=== PATIENT | male | born 1945 | race Caucasian/White ===

== ENCOUNTER 2021-11-22 18:03 | Inpatient (IN) | payer MEDICARE, MEDICAID ==
[~2021-11-22] VITALS: Ht 147.3 cm; Wt 75.7 kg
[2021-11-22] MEDS ORDERED: MethylPREDNISolone SOD SUCC 125 MG/2 ML VIAL IVP ONE (18:15)
[2021-11-22] MEDS ORDERED: LEVALBUTEROL HCL 1.25 MG/0.5 ML NEB SOLUTION NEB ONE (18:15)
[2021-11-22] MEDS ORDERED: SODIUM CHLORIDE 0.9% 1,000 ML IV ONE (18:30)
[2021-11-22] MEDS ORDERED: DILTIAZEM HCL 5 MG/ML 5 ML VIAL IVP ONE ×2 (18:30→22:45)
[2021-11-22] MEDS ORDERED: FUROSEMIDE 20 MG/2 ML VIAL IVP ONE (18:45)
[2021-11-22 18:50] LABS: COVID AG,FIA SOURCE NASOPHARYNGEAL
[2021-11-22 18:51] LABS: BASOPHILS % (AUTO) 0.4 % (0.0-2.0); EOSINOPHILS % (AUTO) 4.2 % (1.0-6.0); HEMATOCRIT 35.1 % (41-53); HEMOGLOBIN 10.9 g/dL (13.5-17.5); LYMPHOCYTES # (AUTO) 1.2 K/uL (1.0-4.8); LYMPHOCYTES % (AUTO) 15.8 % (22.0-44.0); MEAN CORPUSCULAR HEMOGLOBIN 25.8 pg (26.0-34.0); MEAN CORPUSCULAR HGB CONC 31.1 G/dL (31.0-37.0); MEAN CORPUSCULAR VOLUME 83 fL (80-100); MONOCYTES # (AUTO) 0.6 K/uL (0.1-1.0); MONOCYTES % (AUTO) 7.7 % (2.0-9.0); NEUTROPHILS # (AUTO) 5.5 K/uL (1.8-7.7); NEUTROPHILS % (AUTO) 71.9 % (40.0-70.0); PLATELET COUNT (AUTO) 149 K/uL (150-450); RED BLOOD CELL COUNT(AUTO) 4.23 MIL/uL (4.50-5.90); RED CELL DISTRIBUTION WIDTH 17.1 % (11.5-14.5)
[2021-11-22 18:57] LABS: CALCIUM, TOTAL 8.6 mg/dL (8.8-10.5); CREATININE 1.28 mg/dL (0.60-1.30)
[2021-11-22 19:01] LABS: INR 1.2 (0.9-1.1)
[2021-11-22 19:02] LABS: ALBUMIN 3.5 g/dL (3.4-5.0); BILIRUBIN,TOTAL 0.7 mg/dL (0.1-1.0); MAGNESIUM 1.6 mg/dL (1.80-2.40); PHOSPHORUS 3.7 mg/dL (2.5-4.9); TOTAL PROTEIN, SERUM 7.3 g/dL (6.4-8.2)
[2021-11-22 19:14] LABS: INFLUENZA TYPE A NEGATIVE FOR TYPE A (NEGATIVE); INFLUENZA TYPE B NEGATIVE FOR TYPE B (NEGATIVE)
[2021-11-22] MEDS ORDERED: ASPIRIN 325 MG TABLET PO ONE (19:15)
[2021-11-22] MEDS ORDERED: MAGNESIUM SULFATE 1 GM in DEXTROSE 5%-WATER 50 ML IV ONE (19:30)
[2021-11-22 19:44] LABS: THYROID STIMULATING HORMONE 3.03 uIU/mL (0.36-3.74)
[2021-11-22 20:28] LABS: AMPHET/METH SCREEN,URINE NEGATIVE (NEGATIVE); BARBITURATE SCREEN, URINE NEGATIVE (NEGATIVE); BENZODIAZEPINES SCREEN,URINE NEGATIVE (NEGATIVE); CANNABINOID SCREEN,URINE NEGATIVE (NEGATIVE); COCAINE SCREEN,URINE NEGATIVE (NEGATIVE); METHADONE SCREEN, URINE NEGATIVE (NEGATIVE); OPIATE SCREEN,URINE NEGATIVE (NEGATIVE)
[2021-11-22 20:30] LABS: PHENCYCLIDINE SCREEN,URINE NEGATIVE (NEGATIVE)
[2021-11-22] MEDS ORDERED: ONDANSETRON HCL 4 MG/2 ML VIAL IVP PRN (21:00)
[2021-11-22] MEDS ORDERED: HEPARIN SODIUM 25000 UNITS/D5W 250 ML IV PRN (21:15)
[2021-11-22] MEDS ORDERED: MAGNESIUM SULFATE 2 GM/WATER 50 ML IV ONE (21:15)
[2021-11-22] MEDS ORDERED: HEPARIN SODIUM,PORCINE 5,000 UNITS/ML VIAL IVP PRN ×2 (21:15)
[2021-11-22] MEDS ORDERED: HEPARIN SODIUM,PORCINE 5,000 UNITS/ML VIAL IVP ONE (21:15)
[2021-11-22 21:44] LABS: INR 1.2 (0.9-1.1)
[2021-11-22 21:56] LABS: APPEARANCE,URINE CLEAR (CLEAR); BILIRUBIN,URINE NEGATIVE (NEGATIVE); GLUCOSE, URINE (UA) NEGATIVE (NEGATIVE); KETONES,URINE NEGATIVE (NEGATIVE); LEUKOCYTE ESTERASE ,URINE NEGATIVE (NEGATIVE); NITRATE,URINE NEGATIVE (NEGATIVE); OCCULT BLOOD,URINE TRACE (NEGATIVE); PH,URINE 5.5 (5.0-8.0); PROTEIN,URINE NEGATIVE (NEGATIVE); SPECIFIC GRAVITIY, URINE 1.006 (1.003-1.030); UROBILINOGEN,URINE <=1.0 mg/dL (<=1.0)
[2021-11-22 22:15] LABS: BACTERIA,URINE None Seen /HPF (None Seen); RBC,URINE None Seen /HPF (0-2); WBC,URINE None Seen /HPF (0-5)
[2021-11-23] MEDS ORDERED: SODIUM CHLORIDE 0.9% 100 ML ONE (01:33)
[2021-11-23] MEDS ORDERED: IOHEXOL 350 MG/ML 75 ML VIAL ONE (01:34)
[2021-11-23 04:21] LABS: BASOPHILS % (AUTO) 0.3 % (0.0-2.0); EOSINOPHILS % (AUTO) 0.1 % (1.0-6.0); HEMATOCRIT 35.5 % (41-53); HEMOGLOBIN 11.2 g/dL (13.5-17.5); LYMPHOCYTES # (AUTO) 0.3 K/uL (1.0-4.8); LYMPHOCYTES % (AUTO) 5.5 % (22.0-44.0); MEAN CORPUSCULAR HGB CONC 31.5 G/dL (31.0-37.0); MEAN CORPUSCULAR VOLUME 82 fL (80-100); MONOCYTES # (AUTO) 0.1 K/uL (0.1-1.0); MONOCYTES % (AUTO) 1.4 % (2.0-9.0); NEUTROPHILS # (AUTO) 4.7 K/uL (1.8-7.7); PLATELET COUNT (AUTO) 137 K/uL (150-450)
[2021-11-23 04:23] LABS: NEUTROPHILS % (AUTO) 92.7 % (40.0-70.0)
[2021-11-23] MEDS ORDERED: IPRATROPIUM BROMIDE 0.5 MG/2.5 ML NEB SOLUTION NEB PRN (07:45)
[2021-11-23] MEDS ORDERED: ALBUTEROL SULFATE 2.5 MG/0.5 ML NEB SOLUTION NEB PRN (07:45)
[2021-11-23] MEDS ORDERED: LORazepam 2 MG TABLET PO PRN (07:45)
[2021-11-23 08:17] VITALS: BP 131/89
[2021-11-23] MEDS ORDERED: DILTIAZEM HCL CD 120 MG ER CAPSULE PO SCH (09:00)
[2021-11-23 11:09] VITALS: BP 100/72
[2021-11-23] MEDS: FUROSEMIDE 20 MG/2 ML VIAL IVP SCH ×2 (11:40→19:57)
[2021-11-23] MEDS: ATORVASTATIN CALCIUM 40 MG TABLET PO SCH (11:41)
[2021-11-23] MEDS: ASPIRIN 81 MG CHEWABLE TABLET PO SCH (11:41)
[2021-11-23] MEDS: MULTIVITAMINS, THERAPEUTIC 15 ML UDCUP PO SCH (11:41)
[2021-11-23] MEDS ORDERED: HEPARIN SODIUM,PORCINE 5,000 UNITS/ML VIAL IVP PRN ×2 (12:45)
[2021-11-23 16:16] VITALS: BP 116/80
[2021-11-23] MEDS: HEPARIN SODIUM 25000 UNITS/D5W 250 ML IV PRN (20:01)
[2021-11-23 20:21] VITALS: BP 101/63
[2021-11-23] MEDS: MORPHINE SULFATE 2 MG/ML SYRINGE IVP PRN (21:47)
[2021-11-23 23:51] VITALS: BP 105/60
[2021-11-24 05:06] VITALS: BP 108/88
[2021-11-24] MEDS ORDERED: LORazepam 2 MG TABLET PO PRN (07:00)
[2021-11-24 07:21] VITALS: BP 100/58
[2021-11-24] MEDS: FUROSEMIDE 20 MG/2 ML VIAL IVP SCH ×2 (08:17→20:58)
[2021-11-24] MEDS: ATORVASTATIN CALCIUM 40 MG TABLET PO SCH (08:17)
[2021-11-24] MEDS: MULTIVITAMINS, THERAPEUTIC 15 ML UDCUP PO SCH (08:18)
[2021-11-24] MEDS: ASPIRIN 81 MG CHEWABLE TABLET PO SCH (08:19)
[2021-11-24] MEDS: MORPHINE SULFATE 2 MG/ML SYRINGE IVP PRN ×2 (08:23→20:57)
[2021-11-24] MEDS ORDERED: METOPROLOL SUCCINATE 25 MG ER TABLET PO SCH (09:00)
[2021-11-24] MEDS ORDERED: LORazepam 2 MG TABLET PO SCH (09:00)
[2021-11-24] MEDS ORDERED: DILTIAZEM HCL 60 MG SR CAPSULE PO SCH (09:00)
[2021-11-24] MEDS: HEPARIN SODIUM 25000 UNITS/D5W 250 ML IV PRN (09:13)
[2021-11-24 10:55] VITALS: BP 130/85
[2021-11-24 14:49] VITALS: BP 102/63
[2021-11-24] MEDS: ACETAMINOPHEN 325 MG TABLET PO PRN (15:19)
[2021-11-24 19:35] VITALS: BP 142/92
[2021-11-25 04:31] VITALS: BP 132/89
[2021-11-25 06:08] LABS: ANION GAP 2 mmol/L (8-16); CALCIUM, TOTAL 9.1 mg/dL (8.8-10.5); CARBON DIOXIDE 34 mmol/L (22-29); CHLORIDE 102 mmol/L (98-107); GLUCOSE,RANDOM 108 mg/dL (70-110); POTASSIUM 4.3 mmol/L (3.5-5.1); SODIUM SERUM 138 mmol/L (136-145); UREA NITROGEN, BLOOD 34 mg/dL (7-18)
[2021-11-25 06:29] LABS: BASOPHILS % (AUTO) 0.4 % (0.0-2.0); EOSINOPHILS % (AUTO) 1.8 % (1.0-6.0); HEMATOCRIT 33.4 % (41-53); HEMOGLOBIN 10.5 g/dL (13.5-17.5); LYMPHOCYTES # (AUTO) 1.4 K/uL (1.0-4.8); LYMPHOCYTES % (AUTO) 20.5 % (22.0-44.0); MEAN CORPUSCULAR HEMOGLOBIN 25.9 pg (26.0-34.0); MEAN CORPUSCULAR HGB CONC 31.4 G/dL (31.0-37.0); MEAN CORPUSCULAR VOLUME 83 fL (80-100); MONOCYTES # (AUTO) 0.6 K/uL (0.1-1.0); MONOCYTES % (AUTO) 9.1 % (2.0-9.0); NEUTROPHILS # (AUTO) 4.8 K/uL (1.8-7.7); NEUTROPHILS % (AUTO) 68.2 % (40.0-70.0); PLATELET COUNT (AUTO) 153 K/uL (150-450); RED BLOOD CELL COUNT(AUTO) 4.05 MIL/uL (4.50-5.90); RED CELL DISTRIBUTION WIDTH 17.5 % (11.5-14.5)
[2021-11-25 06:38] LABS: GLOMERULAR FILTR. RATE CALC > 60 mL/min (>60)
[2021-11-25 07:55] VITALS: BP 114/70
[2021-11-25] MEDS ORDERED: METOPROLOL SUCCINATE 25 MG ER TABLET PO SCH (09:00)
[2021-11-25] MEDS ORDERED: LOSARTAN POTASSIUM 25 MG TABLET PO SCH (09:00)
[2021-11-25] MEDS: ASPIRIN 81 MG CHEWABLE TABLET PO SCH (09:13)
[2021-11-25] MEDS: FUROSEMIDE 20 MG/2 ML VIAL IVP SCH (09:13)
[2021-11-25] MEDS: ATORVASTATIN CALCIUM 40 MG TABLET PO SCH (09:15)
[2021-11-25] MEDS: MULTIVITAMINS, THERAPEUTIC 15 ML UDCUP PO SCH (09:15)
[2021-11-25] MEDS: MORPHINE SULFATE 2 MG/ML SYRINGE IVP PRN (09:24)
[2021-11-25] MEDS ORDERED: IPRATROPIUM BROMIDE 0.5 MG/2.5 ML NEB SOLUTION NEB PRN (10:00)
[2021-11-25] MEDS: PredniSONE 20 MG TABLET PO SCH (11:36)
[2021-11-25 11:50] VITALS: BP 115/82
[2021-11-25 15:30] VITALS: BP 135/90
[2021-11-25] MEDS: FUROSEMIDE 40 MG/4 ML VIAL IVP SCH (20:04)
[2021-11-25 20:20] VITALS: BP 122/80
[2021-11-26] VITALS (7 sets, daily range): BP systolic 109–125; BP diastolic 69–86
[2021-11-26] MEDS: MORPHINE SULFATE 2 MG/ML SYRINGE IVP PRN ×3 (00:07→19:02)
[2021-11-26 05:38] LABS: BASOPHILS % (AUTO) 0.2 % (0.0-2.0); EOSINOPHILS % (AUTO) 0 % (1.0-6.0); HEMATOCRIT 33.2 % (41-53); HEMOGLOBIN 10.3 g/dL (13.5-17.5); LYMPHOCYTES # (AUTO) 0.9 K/uL (1.0-4.8); LYMPHOCYTES % (AUTO) 10.7 % (22.0-44.0); MEAN CORPUSCULAR HEMOGLOBIN 25.7 pg (26.0-34.0); MEAN CORPUSCULAR HGB CONC 31.1 G/dL (31.0-37.0); MEAN CORPUSCULAR VOLUME 83 fL (80-100); MONOCYTES # (AUTO) 0.7 K/uL (0.1-1.0); MONOCYTES % (AUTO) 8.9 % (2.0-9.0); NEUTROPHILS # (AUTO) 6.7 K/uL (1.8-7.7); NEUTROPHILS % (AUTO) 80.2 % (40.0-70.0); PLATELET COUNT (AUTO) 150 K/uL (150-450); RED BLOOD CELL COUNT(AUTO) 4.01 MIL/uL (4.50-5.90); RED CELL DISTRIBUTION WIDTH 17.5 % (11.5-14.5)
[2021-11-26] MEDS ORDERED: LORazepam 1 MG TABLET PO PRN (07:00)
[2021-11-26] MEDS ORDERED: LORazepam 1 MG TABLET PO SCH (09:00)
[2021-11-26] MEDS: FUROSEMIDE 40 MG/4 ML VIAL IVP SCH ×2 (09:02→20:44)
[2021-11-26] MEDS: LOSARTAN POTASSIUM 25 MG TABLET PO SCH (09:02)
[2021-11-26] MEDS: ATORVASTATIN CALCIUM 40 MG TABLET PO SCH (09:02)
[2021-11-26] MEDS: APIXABAN 5 MG TABLET PO SCH ×2 (09:02→20:45)
[2021-11-26] MEDS: PredniSONE 20 MG TABLET PO SCH (09:02)
[2021-11-26] MEDS: MULTIVITAMINS, THERAPEUTIC 15 ML UDCUP PO SCH (09:03)
[2021-11-26] MEDS: METOPROLOL SUCCINATE 25 MG ER TABLET PO SCH (09:03)
[2021-11-26] MEDS: ASPIRIN 81 MG CHEWABLE TABLET PO SCH (09:08)
[2021-11-26] MEDS ORDERED: ASPI81TA39 PO (10:52)
[2021-11-26] MEDS ORDERED: ATOR20TA86 PO (10:53)
[2021-11-26] MEDS ORDERED: METO25 PO (10:53)
[2021-11-26] MEDS ORDERED: SERT-162 PO (10:54)
[2021-11-26] MEDS ORDERED: METF-1211 PO (10:55)
[2021-11-26] MEDS: IPRATROPIUM BROMIDE 0.5 MG/2.5 ML NEB SOLUTION NEB SCH ×2 (14:12→20:11)
[2021-11-26] MEDS: ALBUTEROL SULFATE 2.5 MG/0.5 ML NEB SOLUTION NEB SCH ×2 (14:12→20:10)
[2021-11-27] MEDS: MORPHINE SULFATE 2 MG/ML SYRINGE IVP PRN ×2 (02:29→08:24)
[2021-11-27] MEDS: IPRATROPIUM BROMIDE 0.5 MG/2.5 ML NEB SOLUTION NEB SCH ×3 (02:31→13:23)
[2021-11-27] MEDS: ALBUTEROL SULFATE 2.5 MG/0.5 ML NEB SOLUTION NEB SCH ×3 (02:31→13:23)
[2021-11-27 04:17] VITALS: BP 114/72
[2021-11-27] MEDS ORDERED: LORazepam 1 MG TABLET PO PRN (07:00)
[2021-11-27 08:10] VITALS: BP 113/88
[2021-11-27] MEDS: ATORVASTATIN CALCIUM 40 MG TABLET PO SCH (08:23)
[2021-11-27] MEDS: METOPROLOL SUCCINATE 25 MG ER TABLET PO SCH (08:23)
[2021-11-27] MEDS: PredniSONE 20 MG TABLET PO SCH (08:23)
[2021-11-27] MEDS: ASPIRIN 81 MG CHEWABLE TABLET PO SCH (08:23)
[2021-11-27] MEDS: FUROSEMIDE 40 MG/4 ML VIAL IVP SCH (08:23)
[2021-11-27] MEDS: MULTIVITAMINS, THERAPEUTIC 15 ML UDCUP PO SCH (08:23)
[2021-11-27] MEDS: LOSARTAN POTASSIUM 25 MG TABLET PO SCH (08:24)
[2021-11-27] MEDS: APIXABAN 5 MG TABLET PO SCH (08:24)
[2021-11-27] MEDS: ACETAMINOPHEN 325 MG TABLET PO PRN (11:44)
[2021-11-27 13:05] VITALS: BP 137/100
[2021-11-27 13:13] LABS: COVID AG,FIA SOURCE NASOPHARYNGEAL
== END 2021-11-27 14:57 | DRG 291 ==
LOC: EMS 18:03 → 5S 11-23 04:46
PROVIDERS: ADMIT Internal Medicine; ATTEND Internal Medicine
DX: I11.0 Hypertensive heart disease with heart failure (principal); I50.23 Acute on chronic systolic (congestive) heart failure; J44.1 Chronic obstructive pulmonary disease with (acute) exacerbation; I47.1 Supraventricular tachycardia; F10.139 Alcohol abuse with withdrawal, unspecified; Z20.822 Contact with and (suspected) exposure to COVID-19; D69.6 Thrombocytopenia, unspecified; F17.210 Nicotine dependence, cigarettes, uncomplicated; D64.9 Anemia, unspecified; G89.29 Other chronic pain; M54.9 Dorsalgia, unspecified; E83.42 Hypomagnesemia; I25.10 Atherosclerotic heart disease of native coronary artery without angina pectoris; I48.0 Paroxysmal atrial fibrillation; J98.4 Other disorders of lung; Z79.01 Long term (current) use of anticoagulants; Z79.51 Long term (current) use of inhaled steroids; I25.2 Old myocardial infarction; Z79.899 Other long term (current) drug therapy; Z91.19 Patient's noncompliance with other medical treatment and regimen; Z95.1 Presence of aortocoronary bypass graft; Z95.2 Presence of prosthetic heart valve; Z71.6 Tobacco abuse counseling
CPT/HCPCS: 71045; 71275; 80048; 80053; 81001; 81003; 82550; 83735; 83880; 84100; 84443; 84484; 85025; 85610; 85730; 87081; 87804; 93005; 93306; 94640; 97116; 97161; 99291; J1644; J1940; J2270; J2930; J3475; J3490; J7050; J7060; Q9967; 36415-L1; 36415-TC; J7613; Z7610

== ENCOUNTER 2021-12-24 11:45 | Inpatient (IN) | payer MEDICARE, MEDICAID ==
[2021-12-24] VITALS (12 sets, daily range): BP systolic 90–165; BP diastolic 43–101
[~2021-12-24] VITALS: Ht 167.6 cm; Wt 68.4 kg
[~2021-12-24 11:45] MED LIST: ASPI81TA39 PO; ATOR20TA86 PO; METF-1211 PO; METO25 PO; SERT-162 PO
[2021-12-24] MEDS ORDERED: APIX5TAB PO (11:54)
[2021-12-24] MEDS ORDERED: LOSA-381 PO (11:54)
[2021-12-24] MEDS ORDERED: FURO40 PO (11:54)
[2021-12-24] MEDS ORDERED: ALBUTEROL SULFATE 5 MG/ML 20 ML NEB SOLN [BULK] NEB ONE (12:10)
[2021-12-24] MEDS ORDERED: DEXAMETHASONE SOD PHOS 4 MG/ML VIAL IVP ONE (12:15)
[2021-12-24] MEDS ORDERED: 0.9% SODIUM CHLORIDE 5 ML NEB SOLUTION NEB ONE (12:15)
[2021-12-24] MEDS ORDERED: DEXTROSE 50%-WATER 25 GM/50 ML SYRINGE IVP ONE (12:15)
[2021-12-24] MEDS ORDERED: IPRATROPIUM BROMIDE 0.5 MG/2.5 ML NEB SOLUTION NEB ONE (12:15)
[2021-12-24 12:23] LABS: BASOPHILS % (AUTO) 0.1 % (0.0-2.0); EOSINOPHILS % (AUTO) 0.1 % (1.0-6.0); LYMPHOCYTES # (AUTO) 1.2 K/uL (1.0-4.8); LYMPHOCYTES % (AUTO) 4.8 % (22.0-44.0); MEAN CORPUSCULAR HEMOGLOBIN 24.2 pg (26.0-34.0); MEAN CORPUSCULAR HGB CONC 28.3 G/dL (31.0-37.0); MEAN CORPUSCULAR VOLUME 86 fL (80-100); MONOCYTES # (AUTO) 2.6 K/uL (0.1-1.0); MONOCYTES % (AUTO) 10.1 % (2.0-9.0); NEUTROPHILS # (AUTO) 21.8 K/uL (1.8-7.7); NEUTROPHILS % (AUTO) 84.9 % (40.0-70.0); PLATELET COUNT (AUTO) 273 K/uL (150-450); RED BLOOD CELL COUNT(AUTO) 1.82 MIL/uL (4.50-5.90); RED CELL DISTRIBUTION WIDTH 20.1 % (11.5-14.5)
[2021-12-24 12:32] LABS: CREATININE 2.03 mg/dL (0.60-1.30); POTASSIUM 5.8 mmol/L (3.5-5.1)
[2021-12-24 12:35] LABS: HEMOGLOBIN 4.4 g/dL (13.5-17.5)
[2021-12-24 12:36] LABS: HEMATOCRIT 15.6 % (41-53)
[2021-12-24] MEDS ORDERED: ROCURONIUM BROMIDE 10 MG/ML 5 ML VIAL ONE (12:44)
[2021-12-24] MEDS ORDERED: FUROSEMIDE 40 MG/4 ML VIAL IVP ONE (12:45)
[2021-12-24 12:48] LABS: PATHOLOGY REVIEW, DIFF YES
[2021-12-24 12:57] LABS: ALBUMIN 2.7 g/dL (3.4-5.0); BILIRUBIN,TOTAL 1.4 mg/dL (0.1-1.0); MAGNESIUM 2.5 mg/dL (1.80-2.40); PHOSPHORUS 6.4 mg/dL (2.5-4.9); TOTAL PROTEIN, SERUM 5.8 g/dL (6.4-8.2)
[2021-12-24] MEDS ORDERED: VANCOMYCIN 1GM/WATER(PEG/NADA) 200 ML IV ONE (13:00)
[2021-12-24] MEDS ORDERED: PIPERACILLIN/TAZO 3.375 GM/D5W 50 ML IV ONE (13:00)
[2021-12-24] MEDS ORDERED: AZITHROMYCIN 500 MG/NS 250 ML IV ONE (13:00)
[2021-12-24] MEDS ORDERED: OCTREOTIDE ACETATE 100 MCG/ML VIAL IVP ONE (13:30)
[2021-12-24] MEDS ORDERED: PANTOPRAZOLE SODIUM 80 MG in SODIUM CHLORIDE 0.9% 100 ML IV SCH (13:30)
[2021-12-24] MEDS ORDERED: OCTREOTIDE ACETATE 500 MCG in SODIUM CHLORIDE 0.9% 97.5 ML IV SCH (13:30)
[2021-12-24] MEDS ORDERED: PANTOPRAZOLE SODIUM 40 MG/VIAL IVP ONE (13:30)
[2021-12-24] MEDS ORDERED: UMEC1DIS IH (13:31)
[2021-12-24] MEDS ORDERED: FOLI-130 PO (13:31)
[2021-12-24] MEDS ORDERED: PANT40TA54 PO (13:31)
[2021-12-24] MEDS ORDERED: PRAV40TA4 PO (13:31)
[2021-12-24] MEDS ORDERED: METO-391 PO (13:31)
[2021-12-24] MEDS ORDERED: ALBU8HFA IH (13:31)
[2021-12-24] MEDS ORDERED: DOCU100C33 PO (13:31)
[2021-12-24] MEDS ORDERED: POTA-185 PO (13:31)
[2021-12-24 13:51] LABS: INR 1.7 (0.9-1.1); PROTHROMBIN TIME 18.1 SEC (9.4-11.6)
[2021-12-24 14:07] LABS: APPEARANCE,URINE CLEAR (CLEAR); BILIRUBIN,URINE NEGATIVE (NEGATIVE); GLUCOSE, URINE (UA) NEGATIVE (NEGATIVE); KETONES,URINE TRACE mg/dL (NEGATIVE); LEUKOCYTE ESTERASE ,URINE NEGATIVE (NEGATIVE); NITRATE,URINE NEGATIVE (NEGATIVE); OCCULT BLOOD,URINE NEGATIVE (NEGATIVE); PROTEIN,URINE NEGATIVE (NEGATIVE); SPECIFIC GRAVITIY, URINE 1.015 (1.003-1.030); UROBILINOGEN,URINE <=1.0 mg/dL (<=1.0)
[2021-12-24 14:09] LABS: LACTIC ACID 9.7 mmol/L (0.4-2.0)
[2021-12-24] MEDS ORDERED: 0.9% SODIUM CHLORIDE 10 ML SYRINGE IVP PRN (14:30)
[2021-12-24 15:12] LABS: COVID AG,FIA SOURCE NASOPHARYNGEAL
[2021-12-24] MEDS ORDERED: ONDANSETRON HCL 4 MG/2 ML VIAL IVP PRN (15:15)
[2021-12-24] MEDS ORDERED: BISACODYL 10 MG RECTAL RECTAL SUPPOSITORY PR PRN (15:15)
[2021-12-24] MEDS ORDERED: ACETAMINOPHEN 325 MG TABLET PO PRN (15:15)
[2021-12-24] MEDS ORDERED: ZOLPIDEM TARTRATE 5 MG TABLET PO PRN (15:15)
[2021-12-24] MEDS ORDERED: MAGNESIUM HYDROXIDE SUSPENSION 30 ML UDCUP PO PRN (15:15)
[2021-12-24] MEDS ORDERED: MORPHINE SULFATE 2 MG/ML SYRINGE IVP PRN (15:15)
[2021-12-24] MEDS ORDERED: PHENYLEPHRINE HCL IN 0.9% NACL 400 MCG/10 ML SYRINGE IVP ONE ×2 (15:49→15:58)
[2021-12-24] MEDS ORDERED: NOREPINEPHRINE 8 MG/D5%-WATER 250 ML IV ONE (15:59)
[2021-12-24] MEDS ORDERED: SODIUM CHLORIDE 0.9% 1,000 ML IV ONE (16:15)
[2021-12-24] MEDS ORDERED: NOREPINEPHRINE 8 MG/D5%-WATER 250 ML IV PRN (16:30)
[2021-12-24] MEDS: PROPOFOL 1000 MG/ISO-OSM 100 ML IV PRN (16:30)
[2021-12-24 17:05] LABS: ABG BASE EXCESS -16.3 mmol/L (-2.0-3.0); ABG CARBOXYHEMOGLOBIN 0.3 % (0.0-1.5); ABG HCO3 12.5 mmol/L (22.0-26.0); ABG METHEMOGLOBIN 0.8 % (0.0-1.5); ABG OXYGEN CONTENT 10.4 mL/dL (15.0-23.0); ABG OXYGEN SATURATION 99.6 % (95.0-98.0); ABG OXYHEMOGLOBIN 98.5 % (94.0-100.0); ABG PCO2 27 mmHg (35-45); ABG PH 7.234 (7.35-7.450); PO2, ARTERIAL BG 505.8 mmHg (75.0-83.0); SOURCE, BLOOD GAS ARTERIAL; TEMPERATURE, FAHRENHEIT, BG 98.6 FAHREN (96.0-98.6)
[2021-12-24] MEDS ORDERED: SODIUM CHLORIDE 0.9% 500 ML IV ONE (17:06)
[2021-12-24 17:07] LABS: ABG TOTAL HEMOGLOBIN 6.4 G/dL (12.0-18.0)
[2021-12-24 17:08] LABS: O2 DEVICE,BLOOD GAS VENTILATOR (ROOM AIR); PEEP,BG 5 cm H2O; SITE, BLOOD GAS RT RADIAL; VT, ABG 450 ml
[2021-12-24] MEDS ORDERED: MIDAZOLAM HCL 100 MG in SODIUM CHLORIDE 0.9% 180 ML IV PRN (17:30)
[2021-12-24] MEDS ORDERED: MORPHINE SULFATE 2 MG/ML SYRINGE IVP ONE (17:30)
[2021-12-24] MEDS ORDERED: PHENYLEPHRINE 200 MG/D5%-WATER 250 ML IV PRN (18:00)
[2021-12-24] MEDS: DOCUSATE SODIUM 100 MG CAPSULE PO SCH (20:07)
[2021-12-24] MEDS: FUROSEMIDE 40 MG/4 ML VIAL IVP SCH (20:07)
[2021-12-24 20:33] LABS: HEMATOCRIT 23.3 % (41-53)
[2021-12-24] MEDS: OCTREOTIDE ACETATE 500 MCG in SODIUM CHLORIDE 0.9% 97.5 ML IV SCH (22:03)
[2021-12-25] MEDS ORDERED: CefTRIAXone SODIUM 2 GM in DEXTROSE 5%-WATER 50 ML IV SCH ×2
[2021-12-25] MEDS: CefTRIAXone SODIUM 2 GM in DEXTROSE 5%-WATER 50 ML IV SCH ×2 (00:35→23:36)
[2021-12-25 02:25] VITALS: BP_SYST 120; BP_SYST 134; BP_DIAS 45; BP_DIAS 65
[2021-12-25] MEDS: PROPOFOL 1000 MG/ISO-OSM 100 ML IV PRN ×2 (03:11→09:06)
[2021-12-25 04:00] VITALS: BP 120/52
[2021-12-25] MEDS ORDERED: PANTOPRAZOLE SODIUM 80 MG in SODIUM CHLORIDE 0.9% 100 ML IV SCH (04:00)
[2021-12-25 07:02] LABS: GLUCOSE,POINT OF CARE 237 MG/DL (70-110)
[2021-12-25 07:07] LABS: HEMATOCRIT 22.3 % (41-53); MEAN CORPUSCULAR HEMOGLOBIN 26.2 pg (26.0-34.0); MEAN CORPUSCULAR HGB CONC 31.2 G/dL (31.0-37.0); MEAN CORPUSCULAR VOLUME 84 fL (80-100); PLATELET COUNT (AUTO) 257 K/uL (150-450); RED BLOOD CELL COUNT(AUTO) 2.66 MIL/uL (4.50-5.90); RED CELL DISTRIBUTION WIDTH 18.2 % (11.5-14.5)
[2021-12-25] MEDS: OCTREOTIDE ACETATE 500 MCG in SODIUM CHLORIDE 0.9% 97.5 ML IV SCH (07:12)
[2021-12-25] MEDS: FentaNYL CIT 1000MCG/0.9% NACL 100 ML IV PRN (07:13)
[2021-12-25 08:00] VITALS: BP 135/52
[2021-12-25 08:21] LABS: ALBUMIN 2.7 g/dL (3.4-5.0); BILIRUBIN,TOTAL 0.8 mg/dL (0.1-1.0); CALCIUM, TOTAL 8.3 mg/dL (8.8-10.5); CREATININE 2.12 mg/dL (0.60-1.30); POTASSIUM 4.1 mmol/L (3.5-5.1); TOTAL PROTEIN, SERUM 5.6 g/dL (6.4-8.2)
[2021-12-25 08:35] LABS: BAND NEUTROPHILS % (MANUAL) 3 % (0-5); LYMPHOCYTES % (MANUAL) 6 % (22-44); MONOCYTES % (MANUAL) 1 % (2-9); SEGMENTED NEUTROPHILS % 90 % (40-70)
[2021-12-25] MEDS: DOCUSATE SODIUM 100 MG CAPSULE PO SCH ×2 (09:00→20:06)
[2021-12-25] MEDS: FUROSEMIDE 40 MG/4 ML VIAL IVP SCH ×2 (09:04→20:06)
[2021-12-25] MEDS: ASPIRIN 81 MG CHEWABLE TABLET PO SCH (09:05)
[2021-12-25] MEDS ORDERED: SODIUM CHLORIDE 0.9% 250 ML IV ONE (11:31)
[2021-12-25] MEDS: PIPERACILLIN SODIUM/TAZOBACTAM 2.25 GM in DEXTROSE 5%-WATER 50 ML IV SCH ×3 (11:37→23:34)
[2021-12-25 12:00] VITALS: BP 127/45
[2021-12-25] MEDS: PANTOPRAZOLE SODIUM 80 MG in SODIUM CHLORIDE 0.9% 100 ML IV SCH ×2 (12:30→23:34)
[2021-12-25 16:00] VITALS: BP 120/48
[2021-12-25 20:00] VITALS: BP 104/44
[2021-12-25] MEDS ORDERED: MEBROFENIN TC99M/MCL ISOTOPE 1 EA INJ INJ ONE (20:00)
[2021-12-26] VITALS: BP 97/44
[2021-12-26] MEDS ORDERED: SODIUM CHLORIDE 0.9% 250 ML IV ONE ×2 (02:37→23:42)
[2021-12-26] MEDS: FentaNYL CIT 1000MCG/0.9% NACL 100 ML IV PRN ×2 (02:56→23:43)
[2021-12-26] MEDS: PROPOFOL 1000 MG/ISO-OSM 100 ML IV PRN ×2 (02:57→17:58)
[2021-12-26 04:00] VITALS: BP 117/47
[2021-12-26 05:30] LABS: HEMATOCRIT 23.4 % (41-53); HEMOGLOBIN 7.2 g/dL (13.5-17.5); MEAN CORPUSCULAR HEMOGLOBIN 25.9 pg (26.0-34.0); MEAN CORPUSCULAR VOLUME 84 fL (80-100); PLATELET COUNT (AUTO) 236 K/uL (150-450); RED CELL DISTRIBUTION WIDTH 18.5 % (11.5-14.5)
[2021-12-26 05:32] LABS: CALCIUM, TOTAL 8.6 mg/dL (8.8-10.5); CREATININE 1.73 mg/dL (0.60-1.30); POTASSIUM 3.8 mmol/L (3.5-5.1)
[2021-12-26] MEDS: PIPERACILLIN SODIUM/TAZOBACTAM 2.25 GM in DEXTROSE 5%-WATER 50 ML IV SCH ×4 (05:33→23:38)
[2021-12-26 05:58] LABS: BAND NEUTROPHILS % (MANUAL) 4 % (0-5); LYMPHOCYTES % (MANUAL) 5 % (22-44); MONOCYTES % (MANUAL) 3 % (2-9); SEGMENTED NEUTROPHILS % 88 % (40-70)
[2021-12-26 08:00] VITALS: BP 118/50
[2021-12-26] MEDS: ETHYL ALCOHOL 62% ANTISEPTIC NASAL SANITIZER 0.6 ML AMPUL NASAL SCH ×2 (08:24→20:15)
[2021-12-26] MEDS: ASPIRIN 81 MG CHEWABLE TABLET PO SCH (08:24)
[2021-12-26] MEDS: FUROSEMIDE 40 MG/4 ML VIAL IVP SCH ×2 (08:25→20:15)
[2021-12-26] MEDS: DOCUSATE SODIUM 100 MG CAPSULE PO SCH ×2 (09:07→20:15)
[2021-12-26] MEDS: PANTOPRAZOLE SODIUM 80 MG in SODIUM CHLORIDE 0.9% 100 ML IV SCH ×2 (09:09→20:11)
[2021-12-26 10:03] LABS: ALBUMIN 2.7 g/dL (3.4-5.0); BILIRUBIN,DIRECT 0.5 mg/dL (0.00-0.20); BILIRUBIN,TOTAL 0.7 mg/dL (0.1-1.0); TOTAL PROTEIN, SERUM 5.7 g/dL (6.4-8.2)
[2021-12-26 12:00] VITALS: BP 130/52
[2021-12-26] MEDS ORDERED: DIGOXIN 250 MCG/ML 2 ML AMP IVP ONE (14:45)
[2021-12-26 16:00] VITALS: BP 118/53
[2021-12-26 20:00] VITALS: BP 128/57
[2021-12-26 20:00] LABS: ABG BASE EXCESS 4.7 mmol/L (-2.0-3.0); ABG CARBOXYHEMOGLOBIN 0.7 % (0.0-1.5); ABG HCO3 28.5 mmol/L (22.0-26.0); ABG METHEMOGLOBIN 0.3 % (0.0-1.5); ABG OXYGEN CONTENT 10.6 mL/dL (15.0-23.0); ABG OXYGEN SATURATION 99.2 % (95.0-98.0); ABG OXYHEMOGLOBIN 98.2 % (94.0-100.0); ABG PCO2 39 mmHg (35-45); PO2, ARTERIAL BG 160.4 mmHg (75.0-83.0); SOURCE, BLOOD GAS ARTERIAL; TEMPERATURE, FAHRENHEIT, BG 98.6 FAHREN (96.0-98.6)
[2021-12-26 20:01] LABS: ABG TOTAL HEMOGLOBIN 7.4 G/dL (12.0-18.0); O2 DEVICE,BLOOD GAS VENTILATOR (ROOM AIR); PEEP,BG 5 cm H2O; SITE, BLOOD GAS ARTERIAL LINE; VT, ABG 450 ml
[2021-12-27] VITALS: BP 122/58
[2021-12-27 04:00] VITALS: BP 128/57
[2021-12-27] MEDS: PANTOPRAZOLE SODIUM 80 MG in SODIUM CHLORIDE 0.9% 100 ML IV SCH ×2 (04:37→16:47)
[2021-12-27] MEDS: PIPERACILLIN SODIUM/TAZOBACTAM 2.25 GM in DEXTROSE 5%-WATER 50 ML IV SCH ×4 (04:37→22:55)
[2021-12-27 06:16] LABS: BASOPHILS % (AUTO) 0.1 % (0.0-2.0); EOSINOPHILS % (AUTO) 0 % (1.0-6.0); HEMATOCRIT 23.3 % (41-53); HEMOGLOBIN 7.2 g/dL (13.5-17.5); LYMPHOCYTES # (AUTO) 1.7 K/uL (1.0-4.8); LYMPHOCYTES % (AUTO) 8.3 % (22.0-44.0); MEAN CORPUSCULAR HEMOGLOBIN 25.9 pg (26.0-34.0); MEAN CORPUSCULAR HGB CONC 30.8 G/dL (31.0-37.0); MEAN CORPUSCULAR VOLUME 84 fL (80-100); MONOCYTES # (AUTO) 1.3 K/uL (0.1-1.0); MONOCYTES % (AUTO) 6.5 % (2.0-9.0); NEUTROPHILS # (AUTO) 17.3 K/uL (1.8-7.7); NEUTROPHILS % (AUTO) 85.1 % (40.0-70.0); PLATELET COUNT (AUTO) 209 K/uL (150-450); RED BLOOD CELL COUNT(AUTO) 2.78 MIL/uL (4.50-5.90); RED CELL DISTRIBUTION WIDTH 18.7 % (11.5-14.5)
[2021-12-27 06:37] LABS: ALBUMIN 2.5 g/dL (3.4-5.0); BILIRUBIN,TOTAL 0.7 mg/dL (0.1-1.0); CALCIUM, TOTAL 8.5 mg/dL (8.8-10.5); CREATININE 1.58 mg/dL (0.60-1.30); POTASSIUM 3.7 mmol/L (3.5-5.1); TOTAL PROTEIN, SERUM 5.7 g/dL (6.4-8.2)
[2021-12-27 08:00] VITALS: BP 117/54
[2021-12-27] MEDS: DOCUSATE SODIUM 100 MG CAPSULE PO SCH ×2 (08:18→21:33)
[2021-12-27] MEDS: ASPIRIN 81 MG CHEWABLE TABLET PO SCH (08:18)
[2021-12-27] MEDS: ETHYL ALCOHOL 62% ANTISEPTIC NASAL SANITIZER 0.6 ML AMPUL NASAL SCH ×2 (08:18→21:33)
[2021-12-27] MEDS ORDERED: DEXMEDETOMIDINE HCL 400 MCG in SODIUM CHLORIDE 0.9% 96 ML IV PRN (09:30)
[2021-12-27] MEDS: FUROSEMIDE 40 MG/4 ML VIAL IVP SCH ×2 (10:07→21:33)
[2021-12-27] MEDS: DIGOXIN 250 MCG/ML 2 ML AMP IVP SCH (10:08)
[2021-12-27 12:00] VITALS: BP 138/63
[2021-12-27 16:00] VITALS: BP 137/62
[2021-12-27] MEDS: PROPOFOL 1000 MG/ISO-OSM 100 ML IV PRN (18:51)
[2021-12-27 20:00] VITALS: BP 121/55
[2021-12-28] VITALS: BP 127/57
[2021-12-28] MEDS ORDERED: SODIUM CHLORIDE 0.9% 250 ML IV ONE ×2 (01:29→23:20)
[2021-12-28] MEDS: PANTOPRAZOLE SODIUM 80 MG in SODIUM CHLORIDE 0.9% 100 ML IV SCH ×3 (01:38→20:23)
[2021-12-28] MEDS: FentaNYL CIT 1000MCG/0.9% NACL 100 ML IV PRN (01:39)
[2021-12-28] MEDS: PROPOFOL 1000 MG/ISO-OSM 100 ML IV PRN (01:40)
[2021-12-28 04:00] VITALS: BP 146/55
[2021-12-28] MEDS: PIPERACILLIN SODIUM/TAZOBACTAM 2.25 GM in DEXTROSE 5%-WATER 50 ML IV SCH ×4 (05:12→23:06)
[2021-12-28 06:20] LABS: BASOPHILS % (AUTO) 0.1 % (0.0-2.0); EOSINOPHILS % (AUTO) 0.2 % (1.0-6.0); HEMOGLOBIN 7.8 g/dL (13.5-17.5); LYMPHOCYTES # (AUTO) 1.5 K/uL (1.0-4.8); LYMPHOCYTES % (AUTO) 15.4 % (22.0-44.0); MEAN CORPUSCULAR HEMOGLOBIN 26.2 pg (26.0-34.0); MEAN CORPUSCULAR HGB CONC 31.3 G/dL (31.0-37.0); MEAN CORPUSCULAR VOLUME 84 fL (80-100); MONOCYTES # (AUTO) 0.6 K/uL (0.1-1.0); MONOCYTES % (AUTO) 6.6 % (2.0-9.0); NEUTROPHILS # (AUTO) 7.5 K/uL (1.8-7.7); NEUTROPHILS % (AUTO) 77.7 % (40.0-70.0); PLATELET COUNT (AUTO) 173 K/uL (150-450); RED BLOOD CELL COUNT(AUTO) 2.97 MIL/uL (4.50-5.90); RED CELL DISTRIBUTION WIDTH 18.5 % (11.5-14.5)
[2021-12-28 06:37] LABS: ALBUMIN 2.6 g/dL (3.4-5.0); BILIRUBIN,TOTAL 0.9 mg/dL (0.1-1.0); CALCIUM, TOTAL 8.8 mg/dL (8.8-10.5); CREATININE 1.49 mg/dL (0.60-1.30); POTASSIUM 3.2 mmol/L (3.5-5.1); TOTAL PROTEIN, SERUM 6.1 g/dL (6.4-8.2)
[2021-12-28 06:49] LABS: DIGOXIN 0.91 ng/mL (0.90-2.00)
[2021-12-28 08:00] VITALS: BP 121/49
[2021-12-28] MEDS: DOCUSATE SODIUM 100 MG CAPSULE PO SCH ×2 (08:17→20:25)
[2021-12-28] MEDS: ASPIRIN 81 MG CHEWABLE TABLET PO SCH (08:17)
[2021-12-28] MEDS: ETHYL ALCOHOL 62% ANTISEPTIC NASAL SANITIZER 0.6 ML AMPUL NASAL SCH ×2 (08:17→20:23)
[2021-12-28] MEDS: DIGOXIN 250 MCG/ML 2 ML AMP IVP SCH (08:18)
[2021-12-28] MEDS: FUROSEMIDE 40 MG/4 ML VIAL IVP SCH (08:18)
[2021-12-28] MEDS: DEXTROSE 5%-WATER 1,000 ML IV SCH (10:18)
[2021-12-28] MEDS: POTASSIUM CHL 10 MEQ/WATER 50 ML IV SCH ×2 (10:18→11:24)
[2021-12-28 10:55] LABS: SOURCE, BLOOD GAS ARTERIAL; TEMPERATURE, FAHRENHEIT, BG 98.6 FAHREN (96.0-98.6)
[2021-12-28 11:22] LABS: ABG BASE EXCESS 5.4 mmol/L (-2.0-3.0); ABG CARBOXYHEMOGLOBIN 0.7 % (0.0-1.5); ABG HCO3 29.1 mmol/L (22.0-26.0); ABG METHEMOGLOBIN 0.3 % (0.0-1.5); ABG OXYGEN CONTENT 11.3 mL/dL (15.0-23.0); ABG OXYGEN SATURATION 99.3 % (95.0-98.0); ABG OXYHEMOGLOBIN 98.3 % (94.0-100.0); ABG PCO2 38 mmHg (35-45); ABG PH 7.494 (7.35-7.450); PO2, ARTERIAL BG 155.3 mmHg (75.0-83.0)
[2021-12-28 11:24] LABS: ABG TOTAL HEMOGLOBIN 7.9 G/dL (12.0-18.0); CPAP, BG 0 cm H2O; O2 DEVICE,BLOOD GAS VENTILATOR (ROOM AIR); PRESSURE SUPPORT, BG 8 cm H2O; SITE, BLOOD GAS ARTERIAL LINE; SPONTANEOUS VT, BG 315 ml; VENT MODE, BG CPAP (ROOM AIR)
[2021-12-28 12:00] VITALS: BP 100/37
[2021-12-28 13:45] LABS: ABG BASE EXCESS 5.8 mmol/L (-2.0-3.0); ABG HCO3 29.3 mmol/L (22.0-26.0); ABG METHEMOGLOBIN 0.3 % (0.0-1.5); ABG OXYGEN CONTENT 10.9 mL/dL (15.0-23.0); ABG OXYGEN SATURATION 99.1 % (95.0-98.0); ABG OXYHEMOGLOBIN 97.8 % (94.0-100.0); ABG PCO2 41 mmHg (35-45); ABG PH 7.472 (7.35-7.450); PO2, ARTERIAL BG 148.8 mmHg (75.0-83.0); SOURCE, BLOOD GAS ARTERIAL; TEMPERATURE, FAHRENHEIT, BG 98.6 FAHREN (96.0-98.6)
[2021-12-28 13:46] LABS: ABG A-A DIFF O2 31.2 mmHg (10-20.0); ABG TOTAL HEMOGLOBIN 7.7 G/dL (12.0-18.0); O2 DEVICE,BLOOD GAS CANNULA (ROOM AIR); SITE, BLOOD GAS ARTERIAL LINE
[2021-12-28 16:00] VITALS: BP 138/51
[2021-12-28] MEDS ORDERED: ETOMIDATE 2 MG/ML 10 ML VIAL IV ONE (17:39)
[2021-12-28 20:00] VITALS: BP 117/45
[2021-12-29] VITALS: BP 131/47
[2021-12-29 04:00] VITALS: BP 104/62
[2021-12-29] MEDS: PIPERACILLIN SODIUM/TAZOBACTAM 2.25 GM in DEXTROSE 5%-WATER 50 ML IV SCH (05:25)
[2021-12-29] MEDS: DEXTROSE 5%-WATER 1,000 ML IV SCH (05:27)
[2021-12-29 05:59] LABS: BASOPHILS % (AUTO) 0.1 % (0.0-2.0); EOSINOPHILS % (AUTO) 0.6 % (1.0-6.0); HEMATOCRIT 21.5 % (41-53); LYMPHOCYTES # (AUTO) 0.8 K/uL (1.0-4.8); LYMPHOCYTES % (AUTO) 11.1 % (22.0-44.0); MEAN CORPUSCULAR HEMOGLOBIN 26.1 pg (26.0-34.0); MEAN CORPUSCULAR VOLUME 84 fL (80-100); MONOCYTES # (AUTO) 0.6 K/uL (0.1-1.0); MONOCYTES % (AUTO) 8.5 % (2.0-9.0); NEUTROPHILS # (AUTO) 5.7 K/uL (1.8-7.7); NEUTROPHILS % (AUTO) 79.7 % (40.0-70.0); PLATELET COUNT (AUTO) 136 K/uL (150-450); RED BLOOD CELL COUNT(AUTO) 2.56 MIL/uL (4.50-5.90); RED CELL DISTRIBUTION WIDTH 18.8 % (11.5-14.5)
[2021-12-29 06:12] LABS: ALBUMIN 2.3 g/dL (3.4-5.0); BILIRUBIN,TOTAL 1.2 mg/dL (0.1-1.0); CALCIUM, TOTAL 8.1 mg/dL (8.8-10.5); CREATININE 1.3 mg/dL (0.60-1.30); POTASSIUM 3.5 mmol/L (3.5-5.1); TOTAL PROTEIN, SERUM 5.5 g/dL (6.4-8.2)
[2021-12-29] MEDS: PANTOPRAZOLE SODIUM 80 MG in SODIUM CHLORIDE 0.9% 100 ML IV SCH (06:25)
[2021-12-29 06:39] LABS: HEMOGLOBIN 6.7 g/dL (13.5-17.5)
[2021-12-29 08:00] VITALS: BP 113/63
[2021-12-29] MEDS ORDERED: DIGOXIN 250 MCG/ML 2 ML AMP IVP SCH (09:00)
[2021-12-29 09:05] LABS: BASOPHILS % (AUTO) 0.3 % (0.0-2.0); EOSINOPHILS % (AUTO) 0.8 % (1.0-6.0); HEMOGLOBIN 7.6 g/dL (13.5-17.5); LYMPHOCYTES # (AUTO) 0.9 K/uL (1.0-4.8); LYMPHOCYTES % (AUTO) 12.1 % (22.0-44.0); MEAN CORPUSCULAR HEMOGLOBIN 25.8 pg (26.0-34.0); MEAN CORPUSCULAR HGB CONC 30.2 G/dL (31.0-37.0); MEAN CORPUSCULAR VOLUME 86 fL (80-100); MONOCYTES # (AUTO) 0.8 K/uL (0.1-1.0); MONOCYTES % (AUTO) 10.2 % (2.0-9.0); NEUTROPHILS % (AUTO) 76.6 % (40.0-70.0); PLATELET COUNT (AUTO) 130 K/uL (150-450); RED BLOOD CELL COUNT(AUTO) 2.92 MIL/uL (4.50-5.90); RED CELL DISTRIBUTION WIDTH 18.9 % (11.5-14.5)
[2021-12-29] MEDS: ASPIRIN 81 MG CHEWABLE TABLET PO SCH (09:12)
[2021-12-29] MEDS: ETHYL ALCOHOL 62% ANTISEPTIC NASAL SANITIZER 0.6 ML AMPUL NASAL SCH ×2 (09:12→20:25)
[2021-12-29] MEDS: DOCUSATE SODIUM 100 MG CAPSULE PO SCH ×2 (09:13→20:26)
[2021-12-29 12:00] VITALS: BP 103/50
[2021-12-29] MEDS: POTASSIUM CHLORIDE 20 MEQ ER TABLET PO SCH (12:05)
[2021-12-29] MEDS: PIPERACILLIN/TAZO 3.375 GM/D5W 50 ML IV SCH ×2 (12:06→17:17)
[2021-12-29 16:00] VITALS: BP 111/49
[2021-12-29 20:00] VITALS: BP 101/47
[2021-12-29] MEDS: PANTOPRAZOLE SODIUM 40 MG DR TABLET PO SCH (20:27)
[2021-12-30] VITALS (7 sets, daily range): BP systolic 103–133; BP diastolic 62–82
[2021-12-30] MEDS: PIPERACILLIN/TAZO 3.375 GM/D5W 50 ML IV SCH ×5 (00:09→22:46)
[2021-12-30] MEDS: DEXTROSE 5%-WATER 1,000 ML IV SCH (01:02)
[2021-12-30] MEDS ORDERED: DILTIAZEM HCL 5 MG/ML 5 ML VIAL IVP ONE (08:30)
[2021-12-30] MEDS: ETHYL ALCOHOL 62% ANTISEPTIC NASAL SANITIZER 0.6 ML AMPUL NASAL SCH ×2 (08:42→21:22)
[2021-12-30] MEDS: DIGOXIN 125 MCG TABLET PO SCH (08:42)
[2021-12-30] MEDS: PANTOPRAZOLE SODIUM 40 MG DR TABLET PO SCH ×2 (08:42→21:22)
[2021-12-30] MEDS: ASPIRIN 81 MG CHEWABLE TABLET PO SCH (08:42)
[2021-12-30] MEDS: DOCUSATE SODIUM 100 MG CAPSULE PO SCH ×2 (08:42→21:22)
[2021-12-30] MEDS: POTASSIUM CHLORIDE 20 MEQ ER TABLET PO SCH (08:42)
[2021-12-30] MEDS ORDERED: METOPROLOL SUCCINATE 25 MG ER TABLET PO SCH (09:00)
[2021-12-30] MEDS ORDERED: LEVALBUTEROL HCL 0.63 MG/3 ML NEB SOLUTION NEB ONE (11:00)
[2021-12-30] MEDS ORDERED: 0.9% SODIUM CHLORIDE 5 ML NEB SOLUTION NEB ONE ×2 (11:06→13:56)
[2021-12-30] MEDS: MethylPREDNISolone SOD SUCC 125 MG/2 ML VIAL IVP SCH ×3 (11:22→22:46)
[2021-12-30 11:25] LABS: BASOPHILS % (AUTO) 0.1 % (0.0-2.0); EOSINOPHILS % (AUTO) 1.2 % (1.0-6.0); HEMATOCRIT 23.9 % (41-53); HEMOGLOBIN 7.2 g/dL (13.5-17.5); LYMPHOCYTES # (AUTO) 0.8 K/uL (1.0-4.8); LYMPHOCYTES % (AUTO) 7.7 % (22.0-44.0); MEAN CORPUSCULAR HEMOGLOBIN 25.4 pg (26.0-34.0); MEAN CORPUSCULAR HGB CONC 30.2 G/dL (31.0-37.0); MEAN CORPUSCULAR VOLUME 84 fL (80-100); MONOCYTES # (AUTO) 0.7 K/uL (0.1-1.0); MONOCYTES % (AUTO) 6.8 % (2.0-9.0); NEUTROPHILS # (AUTO) 9.1 K/uL (1.8-7.7); NEUTROPHILS % (AUTO) 84.2 % (40.0-70.0); PLATELET COUNT (AUTO) 125 K/uL (150-450); RED BLOOD CELL COUNT(AUTO) 2.84 MIL/uL (4.50-5.90)
[2021-12-30 11:37] LABS: ANION GAP 6 mmol/L (8-16); CALCIUM, TOTAL 8.8 mg/dL (8.8-10.5); CARBON DIOXIDE 28 mmol/L (22-29); CHLORIDE 109 mmol/L (98-107); CREATININE 1.15 mg/dL (0.60-1.30); GLOMERULAR FILTR. RATE CALC > 60 mL/min (>60); GLUCOSE,RANDOM 159 mg/dL (70-110); SODIUM SERUM 143 mmol/L (136-145); UREA NITROGEN, BLOOD 19 mg/dL (7-18)
[2021-12-30 11:50] LABS: B-TYPE NATRIURETIC PEPTIDE 877 pg/mL (0-100)
[2021-12-30] MEDS: LEVALBUTEROL HCL 0.63 MG/3 ML NEB SOLUTION NEB SCH ×2 (14:00→20:12)
[2021-12-30] MEDS: HYDROCODONE/ACETAMINOPHEN 5-325 MG TABLET PO PRN (21:37)
[2021-12-30] MEDS ORDERED: SODIUM CHLORIDE 0.9% 250 ML IV ONE (22:45)
[2021-12-31] VITALS (13 sets, daily range): BP systolic 97–122; BP diastolic 46–80
[2021-12-31] MEDS: LEVALBUTEROL HCL 0.63 MG/3 ML NEB SOLUTION NEB SCH ×4 (02:16→20:42)
[2021-12-31] MEDS: PIPERACILLIN/TAZO 3.375 GM/D5W 50 ML IV SCH ×4 (05:35→23:46)
[2021-12-31 08:01] LABS: EOSINOPHILS % (AUTO) 0 % (1.0-6.0); LYMPHOCYTES # (AUTO) 0.4 K/uL (1.0-4.8); LYMPHOCYTES % (AUTO) 7.9 % (22.0-44.0); MEAN CORPUSCULAR HGB CONC 29.9 G/dL (31.0-37.0); MEAN CORPUSCULAR VOLUME 84 fL (80-100); MONOCYTES # (AUTO) 0.2 K/uL (0.1-1.0); MONOCYTES % (AUTO) 4.2 % (2.0-9.0); NEUTROPHILS # (AUTO) 4.5 K/uL (1.8-7.7); PLATELET COUNT (AUTO) 104 K/uL (150-450); RED BLOOD CELL COUNT(AUTO) 2.42 MIL/uL (4.50-5.90); RED CELL DISTRIBUTION WIDTH 19.4 % (11.5-14.5)
[2021-12-31 08:12] LABS: HEMATOCRIT 20.2 % (41-53); NEUTROPHILS % (AUTO) 87.9 % (40.0-70.0)
[2021-12-31 08:34] LABS: ANION GAP 6 mmol/L (8-16); CALCIUM, TOTAL 8.8 mg/dL (8.8-10.5); CARBON DIOXIDE 28 mmol/L (22-29); CHLORIDE 108 mmol/L (98-107); CREATININE 1.12 mg/dL (0.60-1.30); GLUCOSE,RANDOM 247 mg/dL (70-110); POTASSIUM 4.5 mmol/L (3.5-5.1); SODIUM SERUM 142 mmol/L (136-145); UREA NITROGEN, BLOOD 25 mg/dL (7-18)
[2021-12-31 08:37] LABS: GLOMERULAR FILTR. RATE CALC > 60 mL/min (>60)
[2021-12-31] MEDS ORDERED: SODIUM CHLORIDE 0.9% 500 ML IV ONE (08:53)
[2021-12-31] MEDS: DOCUSATE SODIUM 100 MG CAPSULE PO SCH ×2 (08:55→21:00)
[2021-12-31] MEDS: DIGOXIN 125 MCG TABLET PO SCH (08:59)
[2021-12-31] MEDS: PANTOPRAZOLE SODIUM 40 MG DR TABLET PO SCH ×2 (08:59→21:37)
[2021-12-31] MEDS: ETHYL ALCOHOL 62% ANTISEPTIC NASAL SANITIZER 0.6 ML AMPUL NASAL SCH ×2 (09:00→21:36)
[2021-12-31] MEDS: ASPIRIN 81 MG CHEWABLE TABLET PO SCH (09:00)
[2021-12-31] MEDS ORDERED: LOSARTAN POTASSIUM 25 MG TABLET PO SCH (09:00)
[2021-12-31] MEDS: HYDROCODONE/ACETAMINOPHEN 5-325 MG TABLET PO PRN ×2 (09:00→21:40)
[2021-12-31] MEDS: POTASSIUM CHLORIDE 20 MEQ ER TABLET PO SCH (09:01)
[2021-12-31] MEDS: MethylPREDNISolone SOD SUCC 125 MG/2 ML VIAL IVP SCH ×3 (09:01→23:47)
[2021-12-31] MEDS: METOPROLOL SUCCINATE 25 MG ER TABLET PO SCH (09:01)
[2021-12-31] MEDS ORDERED: FUROSEMIDE 20 MG/2 ML VIAL IVP ONE (10:15)
[2021-12-31] MEDS: SACUBITRIL/VALSARTAN 24-26 MG TABLET PO SCH (21:37)
[2022-01-01 00:03] VITALS: BP 120/60
[2022-01-01] MEDS ORDERED: 0.9% SODIUM CHLORIDE 5 ML NEB SOLUTION NEB ONE (02:41)
[2022-01-01] MEDS: LEVALBUTEROL HCL 0.63 MG/3 ML NEB SOLUTION NEB SCH ×3 (02:44→15:18)
[2022-01-01 04:00] VITALS: BP 94/60
[2022-01-01] MEDS: PIPERACILLIN/TAZO 3.375 GM/D5W 50 ML IV SCH (04:31)
[2022-01-01] MEDS: HYDROCODONE/ACETAMINOPHEN 5-325 MG TABLET PO PRN (04:40)
[2022-01-01 06:18] LABS: BASOPHILS % (AUTO) 0.2 % (0.0-2.0); EOSINOPHILS % (AUTO) 0 % (1.0-6.0); HEMOGLOBIN 8.2 g/dL (13.5-17.5); LYMPHOCYTES # (AUTO) 0.3 K/uL (1.0-4.8); LYMPHOCYTES % (AUTO) 2.9 % (22.0-44.0); MEAN CORPUSCULAR HEMOGLOBIN 26.2 pg (26.0-34.0); MEAN CORPUSCULAR HGB CONC 30.4 G/dL (31.0-37.0); MEAN CORPUSCULAR VOLUME 86 fL (80-100); MONOCYTES # (AUTO) 0.2 K/uL (0.1-1.0); MONOCYTES % (AUTO) 2.4 % (2.0-9.0); PLATELET COUNT (AUTO) 130 K/uL (150-450); RED BLOOD CELL COUNT(AUTO) 3.14 MIL/uL (4.50-5.90); RED CELL DISTRIBUTION WIDTH 18.2 % (11.5-14.5)
[2022-01-01 06:20] LABS: NEUTROPHILS % (AUTO) 94.5 % (40.0-70.0)
[2022-01-01 07:49] VITALS: BP 93/60
[2022-01-01] MEDS: MethylPREDNISolone SOD SUCC 125 MG/2 ML VIAL IVP SCH (08:14)
[2022-01-01] MEDS: SACUBITRIL/VALSARTAN 24-26 MG TABLET PO SCH (08:15)
[2022-01-01] MEDS: DIGOXIN 125 MCG TABLET PO SCH (08:15)
[2022-01-01] MEDS: DOCUSATE SODIUM 100 MG CAPSULE PO SCH (08:15)
[2022-01-01] MEDS: ASPIRIN 81 MG CHEWABLE TABLET PO SCH (08:15)
[2022-01-01] MEDS: PANTOPRAZOLE SODIUM 40 MG DR TABLET PO SCH (08:15)
[2022-01-01] MEDS: METOPROLOL SUCCINATE 25 MG ER TABLET PO SCH ×2 (08:16→08:17)
[2022-01-01] MEDS: ETHYL ALCOHOL 62% ANTISEPTIC NASAL SANITIZER 0.6 ML AMPUL NASAL SCH (08:17)
[2022-01-01] MEDS ORDERED: PredniSONE 20 MG TABLET PO SCH (09:30)
[2022-01-01 11:50] VITALS: BP 100/64
[2022-01-04 13:28] LABS: PATHOLOGY REVIEW, DIFF YES
== END 2022-01-01 17:15 | DRG 871 ==
LOC: EMS 12:00 → ICUN 15:19 → UNDOADMIN 12-25 00:04 → ICU 12-25 00:04 → 5S 12-30 01:43 → ICU 12-30 01:43 → UNDODISIN 01-01 17:15
PROVIDERS: ADMIT Internal Medicine; ATTEND Internal Medicine
PROC: 5A1945Z Respiratory Ventilation, 24-96 Consecutive Hours (ICD-10-PCS; principal; 2021-12-24)
PROC: 0BH17EZ Insertion of Endotracheal Airway into Trachea, Via Natural or Artificial Opening (ICD-10-PCS; 2021-12-24)
PROC: 30233N1 Transfusion of Nonautologous Red Blood Cells into Peripheral Vein, Percutaneous Approach (ICD-10-PCS; 2021-12-24)
PROC: 06HY33Z Insertion of Infusion Device into Lower Vein, Percutaneous Approach (ICD-10-PCS; 2021-12-24)
PROC: B54BZZA Ultrasonography of Right Lower Extremity Veins, Guidance (ICD-10-PCS; 2021-12-24)
PROC: 04HY32Z Insertion of Monitoring Device into Lower Artery, Percutaneous Approach (ICD-10-PCS; 2021-12-24)
PROC: 0DB68ZX Excision of Stomach, Via Natural or Artificial Opening Endoscopic, Diagnostic (ICD-10-PCS; 2021-12-25)
PROC: 0DB98ZX Excision of Duodenum, Via Natural or Artificial Opening Endoscopic, Diagnostic (ICD-10-PCS; 2021-12-25)
DX: A41.9 Sepsis, unspecified organism (principal); I50.43 Acute on chronic combined systolic (congestive) and diastolic (congestive) heart failure; J96.01 Acute respiratory failure with hypoxia; R57.8 Other shock; J69.0 Pneumonitis due to inhalation of food and vomit; K72.00 Acute and subacute hepatic failure without coma; N17.0 Acute kidney failure with tubular necrosis; K29.01 Acute gastritis with bleeding; E87.0 Hyperosmolality and hypernatremia; E87.1 Hypo-osmolality and hyponatremia; E87.4 Mixed disorder of acid-base balance; I13.0 Hypertensive heart and chronic kidney disease with heart failure and stage 1 through stage 4 chronic kidney disease, or unspecified chronic kidney disease; D62 Acute posthemorrhagic anemia; I48.92 Unspecified atrial flutter; K80.10 Calculus of gallbladder with chronic cholecystitis without obstruction; Z20.822 Contact with and (suspected) exposure to COVID-19; R65.20 Severe sepsis without septic shock; D46.4 Refractory anemia, unspecified; J44.9 Chronic obstructive pulmonary disease, unspecified; N18.9 Chronic kidney disease, unspecified; E78.5 Hyperlipidemia, unspecified; E87.6 Hypokalemia; I25.10 Atherosclerotic heart disease of native coronary artery without angina pectoris; E87.5 Hyperkalemia; I48.0 Paroxysmal atrial fibrillation; F17.210 Nicotine dependence, cigarettes, uncomplicated; K76.0 Fatty (change of) liver, not elsewhere classified; Z79.01 Long term (current) use of anticoagulants; Z95.1 Presence of aortocoronary bypass graft; Z95.3 Presence of xenogenic heart valve
CPT/HCPCS: 31500; 36600; 71045; 71250; 76700; 78226; 80048; 80053; 80076; 80162; 81003; 82271; 82550; 82805; 82962; 83605; 83690; 83735; 83880; 84100; 84132; 84484; 85014; 85018; 85025; 85610; 85730; 86850; 86900; 86901; 86923; 87040; 87070; 87081; 87205; 92526; 93005; 93970; 94002; 94003; 94640; 94644; 94660; 97162; 97163; 97166; 97530; 97535; 99291; A9537; C9113; G0378; J0456; J0696; J1100; J1160; J1940; J2250; J2270; J2354; J2370; J2543; J2704; J2930; J3480; J3490; J7040; J7050; J7060; P9016; Q9967; 36415-L1; 36415-TC; Z7610